=== PATIENT | male | born 1980 | race Caucasian/White ===

== ENCOUNTER → 2017-07-27 | Outpatient (CLI) | payer OTHER ==
[~2017-07-27] MED LIST: DARVOCET; IOPAMIDOL 370 MG/ML 200 ML INFUS..BTL INJ ONE; NITROGLYCERIN 0.4 MG SUBL ONE; SODIUM CHLORIDE 0.9% 50ML 50 ML ONE
--- NOTE | 2017-07-28 15:55 | Diagnostic Imaging Report ---
EXAM: CORONARY CTA INDICATION: Congenital heart disease \[id number] \[id number] COMPARISON: None. TECHNIQUE: Multi-detector CT technology was employed (64 MDCT WireOver). Minimal slice thickness with retrospective gating was performed following the intravenous administration of contrast material. The patient was premedicated with 0.4 mg sublingual nitroglycerin for coronary dilation. IV CONTRAST: 100 mL of Isovue 370 ORAL CONTRAST: None COMPLICATIONS: None RADIATION DOSE: Total DLP: 1438 mGy*cm Estimated effective dose: (DLP x 0.015 x size factor) mSv CTDIvol has been reviewed. It is below the limits set by the Radiation Protocol Committee (RPC). For optimization of anatomic evaluation, multiplanar reconstruction, maximum intensity projections, and advanced 3-D off-line postprocessing were performed on a dedicated stand-alone workstation under the direct supervision of the interpreting physician. QUALITY: Excellent FINDINGS: CORONARY ANATOMY: There is normal origin of the coronary arteries. Left Main Coronary Artery: The left main is normal sized vessel that bifurcates into the LAD and circumflex. Mildly tortuous origin of the left main. There is no evidence of atherosclerotic changes or stenotic disease. Left Anterior Descending Coronary Artery: The LAD is a normal size vessel that wraps around the apex. It gives rise to 2 acute diagonal branches. There is no evidence of atherosclerotic changes or stenotic disease. Left Circumflex Coronary Artery: The LCX is a normal size vessel, which is non-dominant. It gives rise to 1 obtuse marginal branches. There is no evidence of atherosclerotic changes or stenotic disease. Right Coronary Artery: The RCA is a normal size vessel, which is dominant. It gives rise to AV arnold branch and 2 acute marginal branches. In its distal segment it bifurcates into the PDA and PV branch. Separate origin of the conus branch, arising directly from the right coronary cusp and adjacent to the RCA. There is no evidence of atherosclerotic changes or stenotic disease. CARDIAC MORPHOLOGY AND FUNCTION: The right and left atria and ventricles are morphologically normal. There is normal resting global left ventricular systolic function. LVEF: 59.8%, LV end diastolic volume: 140.2 cc LV end systolic volume: 56.4 cc LV stroke volume: 83.8 cc LIMITED CHEST: Limited views of the visualized chest show no abnormality within chest wall and mediastinum. No mediastinal lymphadenopathy. Minimal scarring in the right middle lobe. The visualized portions of the ascending and descending thoracic aorta are of normal size. LIMITED ABDOMEN: Limited images of the upper abdomen reveal no abnormalities of the visualized organs. BONES: No acute osseous abnormalities. IMPRESSION: 1. Normal coronary anatomy. Variant: Separate origin of the conus branch, arising directly from the right coronary cusp and adjacent to the RCA. 2. No atherosclerotic changes or stenotic disease. CAD-ABELARDO 0. Reference: [email or web address] Signed by: Dr. Claudia Antonio M.D. on 07/28/2017 3:51 PM
== END ==
LOC: CT 10:39
PROVIDERS: ATTEND Internal Medicine Interventional Cardiology
DX: Q24.8 Other specified congenital malformations of heart (principal)
CPT/HCPCS: 75574; Q9967